=== PATIENT | male | born 1940 | race Caucasian/White ===

== ENCOUNTER 2017-03-30 11:10 | Emergency (ER) | payer OTHER ==
[2017-03-30 11:20] VITALS: BP 144/70; PULSE 68; TEMP 98; BMI 33.9
[2017-03-30] MEDS ORDERED: KETOROLAC TROMETHAMINE 60 MG/2 ML VIAL IM ONE (12:52)
[2017-03-30] MEDS ORDERED: KETOROLAC TROMETHAMINE 60 MG/2 ML VIAL ONE (12:54)
--- NOTE | 2017-03-30 13:08 | PDOC ---
History of Present Illness - General Chief Complaint: Pain Stated Complaint: BACK PAIN Time Seen by Provider: 03/30/17 12:27 History Source: Patient Exam Limitations: No Limitations Past History - Travel Traveled outside of the country in the last 30 days: No Close contact w/someone who was outside of country & ill: No - Past Medical History Allergies/Adverse Reactions: Allergies Allergy/AdvReac Type Severity Reaction Status Date / Time No Known Allergies Allergy Verified 03/30/17 11:21 Home Medications: Ambulatory Orders Cyclobenzaprine HCl [Flexeril 10 mg] 10 mg PO BID PRN #14 tablet 03/30/17 Cardiac Disorders: Yes COPD: No HTN: Yes Hypercholesterolemia: Yes - Surgical History Cardiac Surgery: Yes (CATHETERIZATION) - Suicide/Smoking/Psychosocial Hx Smoking History: Never smoked Trauma Specific PMHX - Complaint Specific PMHX Back Injury: Yes Neck Injury: No Review of Systems - Review of Systems Able to Perform ROS?: Yes Is the patient limited [place] Citizen proficient: Yes Constitutional: Yes: Symptoms Reported, See HPI. No: Fever, Malaise HEENTM: Yes: See HPI. No: Symptoms Reported Respiratory: Yes: See HPI. No: Symptoms reported ABD/GI: Yes: See HPI. No: Symptoms Reported Musculoskeletal: Yes: Symptoms Reported, See HPI *Physical Exam - Vital Signs Last Vital Signs Temp Pulse Resp BP Pulse Ox 98 F 68 18 144/70 98 03/30/17 11:17 03/30/17 11:17 11 11:17 03/30/17 11:17 03/30/17 11:17 - Physical Exam General Appearance: Yes: Nourished, Appropriately Dressed, Apparent Distress, Mild Distress, Moderate Distress HEENT: positive: EZE, Normal ENT Inspection, TMs Normal, Pharynx Normal Neck: positive: Supple. negative: Tender Respiratory/Chest: positive: Lungs Clear Musculoskeletal: positive: Normal Inspection, Decreased Range of Motion ( bending ~ 45degrees ), Muscle Spasm. 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 NML intact, Fully Oriented, Alert, Normal Mood/ Affect, Normal Response, Motor Strength 5/5 Progress Note - Progress Note Progress Note: Low back strain, will treat with NSAIDs and cyclobenzaprine *DC/Admit/Observation/Transfer Diagnosis at time of Disposition: Low back strain Qualifiers: Encounter type: initial encounter Qualified Code(s): S39.012A - Strain of muscle, fascia and tendon of lower back, initial encounter - Discharge Dispostion Disposition: HOME Condition at time of disposition: Stable Admit: No - Prescriptions Prescriptions: Cyclobenzaprine HCl [Flexeril 10 mg] 10 mg PO BID PRN #14 tablet PRN Reason: spasm - Referrals Referrals: Rebeca Washington MD [Primary Care Provider] - - Patient Instructions Printed Discharge Instructions: DI for Back Strain or Sprain Additional Instructions: Rest, no heavy lifting or exercise until pain is resolved Hot soaks to neck and low back as often as possible/hot showers or Jacuzzis No massage or therapy until spasm is gone Continue ibuprofen 2-200 mg tablets every 6 hours for the next 3 days then as needed for pain and swelling Cyclobenzaprine 1-10mg every 8 hours as needed for spasm If not significant improvement within 24 hours with medication and rest regime, followup with private physician for change in medications and /or therapy. - Post Discharge Activity Forms/Work/School Notes: Back to Work
== END 2017-03-30 14:03 | disposition home or self-care (01) ==
LOC: JERFT 11:10
DX: S39.012A Strain of muscle, fascia and tendon of lower back, initial encounter (principal); Z98.61 Coronary angioplasty status; I10 Essential (primary) hypertension; E78.00 Pure hypercholesterolemia, unspecified
CPT/HCPCS: 72100-TC; 99281-25

== ENCOUNTER → 2017-06-22 | Emergency (ER) | payer OTHER ==
[2017-06-22 14:39] VITALS: TEMP 97.2; BMI 33.9
--- NOTE | 2017-06-22 16:35 | PDOC ---
Attending Attestation - HPI HPI: 06/22/17 16:51 The patient is a 77 year old male, with a significant past medical history of hypertension, who presents to the emergency department with, intermittent sternal chest pain beginning approx. 5 hours ago. 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 The patient reports the dizziness as a room spinning sensation. The patient reports he then experienced the chest pain rated 3/10 after exiting the vehicle. The patient reports the chest pain lasted for approx. 2 minutes. He denies palpitations or shortness of breath. The patient reports he does not currently have the chest pain at present. The patient reports he received a stress test in March with Dr. Holley and the results were normal. He denies any recent fevers, chills, headache or dizziness. He denies any recent nausea, vomit, diarrhea or constipation. He denies recent swelling or calf tenderness. Allergies: NKA Documentation prepared by Juaquin Albert, acting as hospitalist medical director for Michelle Collazo DO. - Physicial Exam PE: 06/22/17 17:05 GENERAL: Awake, alert, and fully oriented, in no acute distress HEAD: No signs of trauma EYES: PERRLA, EOMI, sclera anicteric, conjunctiva clear ENT: Auricles normal inspection, hearing grossly normal, nares patent, oropharynx clear without exudates. Moist mucosa NECK: Normal ROM, supple, no lymphadenopathy, JVD, or masses LUNGS: Breath sounds equal, clear to auscultation bilaterally. No wheezes, and no crackles HEART: +Bradycardia. Normal S1 and S2, no murmurs, rubs or gallop. Orthostatic test performed and were negative. ABDOMEN: Soft, nontender, normoactive bowel sounds. No guarding, no rebound. EXTREMITIES: Normal range of motion, no edema. No clubbing or cyanosis. No cords, erythema, or tenderness NEUROLOGICAL: Cranial nerves II through XII grossly intact. Normal speech. SKIN: Warm, Dry, normal turgor, no rashes or lesions noted. <Juaquin Albert - Last Filed: 06/22/17 17:03> - Resident Resident Name: Vlad Keller - ED Attending Attestation I have performed the following: I have examined & evaluated the patient, The case was reviewed & discussed with the resident, I agree w/resident's findings & plan, Exceptions are as noted - Medical Decision Making 06/22/17 16:35 I, Dr. Michelle Collazo, DO, attest that this document has been prepared under my direction and personally reviewed by me in its entirety. I further attest, that it accurately reflects all work, treatment, procedures and medical decision -making performed by me. 06/22/17 17:15 a/p: 77yo male with 3 min of cp/dizziness -vertigo -currently resolved both cp and dizziness -will check labs, ekg, cxr -pt with negative nuclear stress in march 2017 -will monitor and reassess -po challenge 06/22/17 23:50 pt tolerated po redrew trop which was hemolized attempted to redraw trop again and the patient had eloped from the ED <Michelle Collazo - Last Filed: 06/22/17 23:50> Discharge Disposition - Discharge Dispostion Last Admission D/C Date: 06/09/10 Admit: No <Michelle Collazo - Last Filed: 06/22/17 23:50> - Diagnosis Chest pain, atypical - Discharge Dispostion Disposition: ELOPED Condition at time of disposition: Unchanged/Unknown - Referrals Referrals: Rebeca Washington MD [Staff Physician] - - Patient Instructions Printed Discharge Instructions: DI for Chest Pain Heart Score/ECG Review - ECG Intrepretation Comment:: 06/22/17 16:38 sinus suzanne at 54, RBBB, no acute st/t wave findings <Michelle Collazo - Last Filed: 06/22/17 23:50>
--- NOTE | 2017-06-22 17:03 | PDOC ---
History of Present Illness - General Chief Complaint: Chest Pain Stated Complaint: CHEST PAIN, DIZZINESS Time Seen by Provider: 06/22/17 15:54 - History of Present Illness Initial Comments: 06/22/17 17:01 The patient is a 77 year old male, with a significant past medical history of hypertension, who presents to the emergency department with, intermittent sternal chest pain beginning approx. 5 hours ago. 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 The patient reports he then experienced the chest pain rated 3/10 after exiting the vehicle. He denies palpitations or shortness of breath. The patient reports he does not currently have the chest pain at present. He denies any recent fevers, chills, headache or dizziness. He denies any recent nausea, vomit, diarrhea or constipation. He denies recent swelling or calf tenderness. 06/22/17 19:08 Past History - Past Medical History Allergies/Adverse Reactions: Allergies Allergy/AdvReac Type Severity Reaction Status Date / Time No Known Allergies Allergy Verified 06/22/17 14:34 Home Medications: Ambulatory Orders Cyclobenzaprine HCl [Flexeril 10 mg] 10 mg PO BID PRN #14 tablet 03/30/17 Cardiac Disorders: Yes COPD: No DVT: No HTN: Yes Hypercholesterolemia: Yes - Surgical History Cardiac Surgery: Yes (CATHETERIZATION) - Immunization History Immunization Up to Date: Yes - Suicide/Smoking/Psychosocial Hx Smoking History: Never smoked Have you smoked in the past 12 months: No Information on smoking cessation initiated: No Hx Alcohol Use: No Drug/Substance Use Hx: No Substance Use Type: None Review of Systems - Review of Systems Able to Perform ROS?: Yes Is the patient limited [place] proficient: No Constitutional: Yes: See HPI HEENTM: No: Symptoms Reported Respiratory: No: Cough, Shortness of Breath Cardiac (ROS): Yes: Chest Pain. No: Lightheadedness, Palpitations, Syncope ABD/GI: No: Symptoms Reported : No: Symptoms Reported Musculoskeletal: Yes: Back Pain Integumentary: No: Symptoms Reported Neurological: No: Symptoms reported *Physical Exam - Vital Signs Last Vital Signs Temp Pulse Resp BP Pulse Ox 97.2 F L 68 16 141/72 99 06/22/17 14:35 06/22/17 18:16 06/22/17 18:16 06/22/17 18:16 06/22/17 18:16 - Physical Exam General Appearance: Yes: Nourished, Appropriately Dressed, Apparent Distress HEENT: positive: EOMI, EZE, Normal ENT Inspection Neck: positive: Trachea midline, Normal Thyroid. negative: Tender Respiratory/Chest: positive: Lungs Clear, Normal Breath Sounds. negative: Chest Tender (no pain on palpation. ), Respiratory Distress Cardiovascular: positive: Regular Rhythm, S1, S2, Bradycardia Gastrointestinal/Abdominal: positive: Normal Bowel Sounds, Flat, Soft. negative : Tender Musculoskeletal: positive: Normal Inspection. negative: CVA Tenderness Extremity: positive: Normal Capillary Refill, Normal Inspection Neurologic: positive: Fully Oriented, Alert, Normal Mood/Affect ED Treatment Course - LABORATORY CBC & Chemistry Diagram: 06/22/17 18:30 06/22/17 18:30 Medical Decision Making - Medical Decision Making 06/22/17 17:03 basic labs, trops then repeat trops. EKG: Sinus Bradycardia, left axis deviation, RBBB (old) 06/22/17 19:09 Labs resent. Patient signed out to Dr. Benson *DC/Admit/Observation/Transfer Diagnosis at time of Disposition: Chest pain, atypical - Referrals - Patient Instructions - Post Discharge Activity
[2017-06-22 18:17] VITALS: BP 141/72; PULSE 68
[2017-06-22 19:20] LABS: BASO % 0.8 % (0-2.0); EOS % 7.2 % (0-4.5); HEMATOCRIT 44.1 % (35.4-49); HEMOGLOBIN 14.1 GM/dL (11.7-16.9); LYMPH % 19.4 % (8-40); MCH 27.3 pg (25.7-33.7); MEAN CELL VOLUME 85.2 fl (80-96); MEAN PLT VOLUME 10.1 fl (7.5-11.1); MONO % 11.7 % (3.8-10.2); NEUT % 60.9 % (42.8-82.8); PLATELET COUNT 169 K/MM3 (134-434); RBC 5.17 M/mm3 (4.00-5.60); RDW 14.6 % (11.9-15.9); WHITE BLOOD COUNT 5.7 K/mm3 (4.0-10.0)
--- NOTE | 2017-06-22 19:26 | PDOC ---
*Physical Exam - Vital Signs Last Vital Signs Temp Pulse Resp BP Pulse Ox 97.2 F L 68 16 141/72 99 06/22/17 14:35 06/22/17 18:16 06/22/17 18:16 06/22/17 18:16 06/22/17 18:16 - Physical Exam Comments: 06/22/17 19:26 GENERAL: Awake, alert, and fully oriented, in no acute distress HEAD: No signs of trauma, normocephalic, atraumatic EYES: PERRLA, EOMI, sclera anicteric, conjunctiva clear ENT: Hearing grossly normal, nares patent, oropharynx clear without exudates. Moist mucosa NECK: Normal ROM, supple, no lymphadenopathy, JVD, or masses LUNGS: No distress, speaks full sentences, clear to auscultation bilaterally HEART: Regular rate and rhythm, normal S1 and S2, no murmurs, rubs or gallops, peripheral pulses normal and equal bilaterally. EXTREMITIES : Normal inspection, Normal range of motion, no edema. No clubbing or cyanosis. SKIN: Warm, Dry, normal turgor, no rashes or lesions noted. 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 Now resolved. No other asx. complaints. He denies palpitations, SOB, N/V, F/C, D/C.Chest pain non reproducible. Physical exam benign. EKG with sinus bradycardia and old RBBB. Received handoff from Dr. Keller. Patient currently asymptomatic and labs, troponin pending. ED Course: *DC/Admit/Observation/Transfer Diagnosis at time of Disposition: Chest pain, atypical - Referrals - Patient Instructions - Post Discharge Activity
[2017-06-22 19:55] LABS: ALBUMIN 3.2 g/dl (3.4-5.0); ALK PHOS 64 U/L (45-117); ANION GAP 6 (8-16); BILIRUBIN,TOTAL 0.4 mg/dL (0.2-1.0); BLOOD UREA NITROGEN 17 mg/dL (7-18); CALCIUM 8.7 mg/dL (8.5-10.1); CHLORIDE 105 mmol/L (98-107); CO2 30 mmol/L (21-32); CREATININE 1.1 mg/dL (0.7-1.3); GLUCOSE,RANDOM 150 mg/dL (74-106); POTASSIUM 4.3 mmol/L (3.5-5.1); SGOT/AST 14 U/L (15-37); SGPT/ALT 23 U/L (12-78); SODIUM 141 mmol/L (136-145); TOT PROT 7.6 g/dl (6.4-8.2)
--- NOTE | 2017-06-23 09:48 | EKG ---
Test Reason : Blood Pressure : / mmHG Vent. Rate : 054 BPM Atrial Rate : 054 BPM P-R Int : 190 ms QRS Dur : 130 ms QT Int : 396 ms P-R-T Axes : 051 -30 015 degrees QTc Int : 375 ms SINUS BRADYCARDIA LEFT AXIS DEVIATION RIGHT BUNDLE BRANCH BLOCK ABNORMAL ECG WHEN COMPARED WITH ECG OF 06-JUN-2010 13:15, RIGHT BUNDLE BRANCH BLOCK IS NOW PRESENT Confirmed by TONY HU, JAN ([id number]) on 06/23/2017 9:47:37 AM Referred By: Confirmed By:JAN JIMENEZ MD
== END | disposition left against medical advice (07) ==
LOC: JER 14:20
DX: R07.89 Other chest pain (principal); E78.00 Pure hypercholesterolemia, unspecified; Z98.61 Coronary angioplasty status
CPT/HCPCS: 36415; 71046-TC; 80053; 82550; 84484; 85025; 93005; 93010; 99283-25